=== PATIENT | male | born 1985 | race Caucasian/White ===

== ENCOUNTER → 2022-09-10 09:39 | Outpatient (CLI) | payer OTHER, MEDICAID, SELFPAY ==
[2022-09-10 19:41] LABS: Alanine Aminotransferase 56 IU/L (<50); Albumin 4.4 g/dL (3.5-5.0); Albumin Globulin Ratio 1.7 (1.0-2.8); Alkaline Phosphatase 48 U/L (38-126); Aspartate Aminotransferase 27 IU/L (17-59); BUN Creatinine Ratio 18.2 (6-22); Bilirubin Total 1.8 mg/dL (0.2-1.3); Blood Urea Nitrogen 18 mg/dL (9-20); Calcium 9.3 mg/dL (8.4-10.2); Carbon Dioxide 31 mmol/L (22-32); Chloride 99 mmol/L (98-107); Estimated Glomerular Filt Rate > 60 mL/min (>60); Globulin 2.6 g/dL (1.7-4.1); Glucose 87 mg/dL (70-100); HEMOLYSIS 23 (0-50); Potassium 3.8 mmol/L (3.4-5.1); Sodium 138 mmol/L (137-145)
== END ==
PROVIDERS: Family Provider Family Medicine; PCP Physician Assistant; Visit Provider Physician Assistant
DX: E80.4 Gilbert syndrome (principal)
CPT/HCPCS: 80053; 82248

== ENCOUNTER → 2022-09-25 10:32 | Outpatient (CLI) | payer OTHER, MEDICAID, SELFPAY ==
--- NOTE | 2022-09-25 10:34 | DI.US.S_ITS ---
PROCEDURE: US SCROTUM INDICATIONS: f/u hydrocele, intermittent increased pain/swelling TECHNIQUE: Real-time scanning was performed of the scrotum and testicles, with image documentation. Color and pulse Doppler interrogation was performed of both testicles. COMPARISON: None. FINDINGS: Right: Testicle is normal in size at 3.5 x 1.5 x 2.7 cm, and homogenous in echotexture. 2 mm epididymal head cyst. Epididymis is normal in overall size and morphology. No hydrocele or varicoceles. Overlying scrotal skin is normal in thickness. Left: Testicle is normal in size at 3.2 x 2.6 x 3.0 cm, and homogeneous in echotexture. Epididymis is normal in overall size and morphology. There is a simple hydrocele, small to moderate in size measuring about 20 cc. There is subtle thickening of the overlying scrotal skin. No varicocele. Doppler: Color and pulse Doppler demonstrate normal and symmetric arterial flow in both testicles. IMPRESSION: 1. Small to moderate size simple left hydrocele and mild overlying scrotal skin thickening. 2. No evidence of epididymitis or orchitis. Dictated by: Briana Min M.D. on 09/25/2022 at 17:03 Approved by: Briana Min M.D. on 09/25/2022 at 17:05
== END ==
PROVIDERS: Family Provider Family Medicine; PCP Physician Assistant; Referring Provider Physician Assistant; Visit Provider Physician Assistant
DX: N43.3 Hydrocele, unspecified (principal); Z87.438 Personal history of other diseases of male genital organs
CPT/HCPCS: 76870; 93975

== ENCOUNTER → 2023-05-21 08:42 | Outpatient (CLI) | payer OTHER, MEDICAID, SELFPAY ==
[2023-05-21 19:20] LABS: Alanine Aminotransferase 45 IU/L (<50); Albumin 4.3 g/dL (3.5-5.0); Albumin Globulin Ratio 1.5 (1.0-2.8); Alkaline Phosphatase 42 U/L (38-126); Aspartate Aminotransferase 25 IU/L (17-59); BUN Creatinine Ratio 20.4 (6-22); Bilirubin Total 1.7 mg/dL (0.2-1.3); Blood Urea Nitrogen 20 mg/dL (9-20); Calcium 9.7 mg/dL (8.4-10.2); Carbon Dioxide 30 mmol/L (22-32); Chloride 100 mmol/L (98-107); Estimated Glomerular Filt Rate > 60 mL/min (>60); Globulin 2.9 g/dL (1.7-4.1); Glucose 114 mg/dL (70-100); HEMOLYSIS < 15 (0-50); Potassium 4.2 mmol/L (3.4-5.1); Sodium 136 mmol/L (137-145); Total Protein 7.2 g/dL (6.3-8.2)
[2023-05-21 19:24] LABS: Add Manual Diff / Slide Review NO; Basophils Absolute Auto 0 /uL (0-100); Basophils Percent Auto 0.9 % (0-2); Eosinophils Absolute Auto 100 /uL (0-450); Eosinophils Percent Auto 2.3 % (2-4); Hematocrit 47.8 % (41-53); Hemoglobin 16.7 g/dL (13.5-17.5); Lymphocytes Absolute Auto 2000 /uL (1100-4500); Lymphocytes Percent Auto 38.5 % (25-40); Mean Corpuscular HGB Conc 34.9 % (30-36); Mean Corpuscular Hemoglobin 30.5 PG (26-34); Mean Corpuscular Volume 87.2 fL (80-100); Monocytes Absolute Auto 500 /uL (0-900); Neutrophils Absolute Auto 2600 /uL (1500-7000); Neutrophils Percent Auto 49.3 % (50-75); Platelet Count 216 X10^3/uL (150-400); Red Blood Cell Count 5.48 X10^6/uL (4.5-5.9); Red Cell Distribution Width 13.6 % (11.6-14.8); White Blood Cell Count 5.3 X10^3/uL (4.5-11.0)
[2023-05-23 12:49] LABS: Mumps Virus IgG Antibody <9.0 AU/mL (Immune >10.9)
[2023-05-25 19:35] LABS: Mumps Virus IgM Antibody <0.80 AU (0.00-0.79)
== END ==
PROVIDERS: Family Provider Family Medicine; PCP Physician Assistant; Visit Provider Physician Assistant
DX: N50.89 Other specified disorders of the male genital organs (principal); N45.1 Epididymitis; R74.8 Abnormal levels of other serum enzymes
CPT/HCPCS: 80053; 81002; 85025; 86735

== ENCOUNTER 2023-05-22 12:45 | Emergency (ER) | payer OTHER, MEDICAID, SELFPAY ==
--- NOTE | 2023-05-22 13:05 | DI.US.S_ITS ---
PROCEDURE: US SCROTUM INDICATIONS: BILATERAL TESTICLE PAIN, SWELLING OF LEFT TESTICLE TECHNIQUE: Real-time scanning was performed of the scrotum and testicles, with image documentation. Color and pulse Doppler interrogation was performed of both testicles. COMPARISON: [facility], , US SCROTUM, 09/25/2022, 11:40. FINDINGS: Right: Testicle is normal in size at 1.9 x 2.7 x 3.9 cm, and homogenous in echotexture. Epididymis is normal in overall size and morphology. No hydrocele or varicoceles. Overlying scrotal skin is normal in thickness. Left: Testicle is normal in size at 2.5 x 2.7 x 3.8 cm, and homogeneous in echotexture. Epididymis is normal in overall size and morphology. No varicoceles. Overlying scrotal skin is normal in thickness. Note is made of a testicular appendage measuring only 2 x 3 x 5 mm. There is a moderate hydrocele on the left. Doppler: Color and pulse Doppler demonstrate normal and symmetric arterial flow in both testicles. IMPRESSION: No sign of testicular torsion but there is a moderate-sized left-sided simple appearing hydrocele. No testicular mass lesion or inflammation is found. Dictated by: Kamari Campa M.D. on 05/22/2023 at 14:32 Approved by: Kamari Campa M.D. on 05/22/2023 at 14:34
[2023-05-22 13:16] VITALS: BP 116/77; PULSE 83; RESP 18; TEMP 36.3; O2SAT 98; BMI 25.8
--- NOTE | 2023-05-22 13:31 | PC.NURSE ---
Pt had a hydrocele a couple months ago, started on abx for left testicle yesterday for epididymitits. He reports feel better but still having some pain. Pt has a follow up US appointment today at 1430.
--- NOTE | 2023-05-22 14:11 | ED.MALEGU ---
HPI - Male Genitourinary <Lizy Leo PA-C - Last Filed: 05/22/23 16:48> General Chief complaint: Urogenital-Male Stated complaint: testicle swelling Time Seen by Provider: 05/22/23 13:05 Source: patient Mode of arrival: Ambulatory History of Present Illness HPI Narrative: 38-year-old male who is sent from the walk-in clinic for evaluation of persistent left testicle pain. He has a history of hydrocele and epididymitis and was seen yesterday for evaluation of new onset left testicle swelling and discomfort. Please see providers earlier note. When he presents here he denies any discomfort at the moment and says he came today primarily to get an STI screening which he refused yesterday. He has been monogamous with his for the past 4 years. He was able to get in have his ordered ultrasound today. As far as he knows he has no urological follow-up. Urine dipstick yesterday was negative, labs essentially normal. Related Data Home Medications Medication Instructions Recorded Confirmed Fish Oil daily PO 04/08/22 05/22/23 Vitamin D daily PO 04/08/22 05/22/23 ibuprofen 200 mg tablet 200 mg PO Q6H PRN 04/08/22 05/22/23 Previous Rx's Medication Instructions Recorded sulfamethoxazole 800 1 tab PO BID 10 days #20 tabs 05/21/23 mg-trimethoprim 160 mg tablet (Bactrim DS) Allergies Allergy/AdvReac Type Severity Reaction Status Date / Time No Known Drug Allergies Allergy Verified 05/22/23 13:21 Review of Systems <Lizy Leo PA-C - Last Filed: 05/22/23 16:48> Review of Systems Narrative: GENERAL: Denies chills, fatigue, malaise, fever, sweats. RESPIRATORY: Denies dyspnea, cough, wheezing, hemoptysis, sputum. CARDIOVASCULAR: Denies chest pain, palpitations, orthopnea, edema, GASTROINTESTINAL: Denies nausea, vomiting, abdominal pain, diarrhea, constipation, melena. : Denies dysuria, frequency, incontinence, hematuria, urinary retention. See history. SKIN: Denies rash, skin lesions, or other NEUROLOGIC: Denies weakness, headache, numbness, change in speech, confusion, seizures, incoordination. PSYCHIATRIC: No concerning psychosocial issues. 12 point review of systems is negative except for those stated above Patient History <Lizy Leo PA-C - Last Filed: 05/22/23 16:48> Social History Smoking Status: Never smoker Smoking Status: Never smoker alcohol intake frequency: 0-2 drinks per day Substance Use Type: marijuana Exam <Lizy Leo PA-C - Last Filed: 05/22/23 16:48> Narrative Exam Narrative: Declines exam due to no change in condition. Initial Vital Signs Initial Vital Signs: Vital Signs Temperature 97.4 F L 05/22/23 13:16 Pulse Rate 83 05/22/23 13:16 Respiratory Rate 18 05/22/23 13:16 Blood Pressure 116/77 05/22/23 13:16 Pulse Oximetry 98 05/22/23 13:16 Oxygen Delivery Method Room Air 05/22/23 13:16 <DO Urban Tanner Last Filed: 05/22/23 17:03> Initial Vital Signs Initial Vital Signs: Vital Signs Temperature 97.4 F L 05/22/23 13:16 Pulse Rate 83 05/22/23 13:16 Respiratory Rate 18 05/22/23 13:16 Blood Pressure 116/77 05/22/23 13:16 Pulse Oximetry 98 05/22/23 13:16 Oxygen Delivery Method Room Air 05/22/23 13:16 Course <Lizy Leo PA-C - Last Filed: 05/22/23 16:48> Orders Ordered: ED Orders 05/22/23 13:05 US scrotum Stat 05/22/23 14:45 Chlamydia Gonorrhea PCR -URINE Stat Vital Signs Vital signs: Vital Signs - 8 hr 05/22/23 13:16 Temperature 97.4 F L Pulse Rate 83 Respiratory Rate 18 Blood Pressure 116/77 Pulse Oximetry 98 Oxygen Delivery Method Room Air <DO Urban Tanner Last Filed: 05/22/23 17:03> Orders Ordered: ED Orders 05/22/23 13:05 US scrotum Stat 05/22/23 14:45 Chlamydia Gonorrhea PCR -URINE Stat Vital Signs Vital signs: Vital Signs - 8 hr 05/22/23 13:16 Temperature 97.4 F L Pulse Rate 83 Respiratory Rate 18 Blood Pressure 116/77 Pulse Oximetry 98 Oxygen Delivery Method Room Air [facility] - Male Genitourinary <Lizy Leo PA-C - Last Filed: 05/22/23 16:48> Lab Data Labs: Lab Results 05/22/23 Range/Units 14:45 Ur Chlamydia DNA (PCR) Not detected N gonorrhoeae DNA (PCR) Not detected Imaging Data Scrotal ultrasound: Radiologist's Impression: PROCEDURE: US SCROTUM INDICATIONS: BILATERAL TESTICLE PAIN, SWELLING OF LEFT TESTICLE TECHNIQUE: Real-time scanning was performed of the scrotum and testicles, with image documentation. Color and pulse Doppler interrogation was performed of both testicles. COMPARISON: Located Within [facility], US, US SCROTUM, 09/25/2022, 11:40. FINDINGS: Right: Testicle is normal in size at 1.9 x 2.7 x 3.9 cm, and homogenous in echotexture. Epididymis is normal in overall size and morphology. No hydrocele or varicoceles. Overlying scrotal skin is normal in thickness. Left: Testicle is normal in size at 2.5 x 2.7 x 3.8 cm, and homogeneous in echotexture. Epididymis is normal in overall size and morphology. No varicoceles. Overlying scrotal skin is normal in thickness. Note is made of a testicular appendage measuring only 2 x 3 x 5 mm. There is a moderate hydrocele on the left. Doppler: Color and pulse Doppler demonstrate normal and symmetric arterial flow in both testicles. IMPRESSION: No sign of testicular torsion but there is a moderate-sized left-sided simple appearing hydrocele. No testicular mass lesion or inflammation is found. Dictated by: Kamari Campa M.D. on 05/22/2023 at 14:32 Approved by: Kamari Campa M.D. on 05/22/2023 at 14:34 [facility] Narrative Medical decision making narrative: Urine CT and GC negative. Given no significant changes in his testicle today and his urine was negative for infection he is advised to stop his antibiotic, to support the scrotum, and follow up with his urology referral that has already been placed. He is to return to the ED for with worsening symptoms. Patient was discussed with Dr. Rudolph who agrees with assessment and plan. <Daniele Rudolph DO - Last Filed: 05/22/23 17:03> Lab Data Labs: Lab Results 05/22/23 Range/Units 14:45 Ur Chlamydia DNA (PCR) Not detected N gonorrhoeae DNA (PCR) Not detected Discharge Plan Departure Patient Disposition: Home Clinical Impression: Testicular pain, left Instructions: DI for Hydrocele-Adult Activity Restrictions/Additional Instructions: Your ultrasound is reassuring, no evidence of epididymitis. You can stop the antibiotic. You do have a small hydrocele which has been present in the past. I believe this has been irritated and will do best if you do wear supportive underwear or jockstrap. If anything positive comes back in your urine I will be sure to contact you. If you do not hear from me assume that there is no infection present. Please follow-up with urology as already referred. It was a pleasure to take care of you today. Prescriptions: No Action Fish Oil daily PO Vitamin D daily PO ibuprofen 200 mg tablet 200 mg PO Q6H PRN sulfamethoxazole-trimethoprim [Bactrim DS] 800-160 mg tablet 1 tab PO BID 10 Days Qty: 20 0RF Referrals: Nanda Ruiz PA-C [Primary Care Provider] - Stand Alone Forms: Patient Portal/API ED Sign-out <Daniele Rudolph DO - Last Filed: 05/22/23 17:03> Cosign ED Attending Cosignature Attestation: Dr Rudolph Co-Sign Statement: I was available for consultation during this patient's emergency department visit. This chart is signed by myself for administrative purposes only. I did not have direct contact with this patient during this visit. They were seen independently by the APC.
[2023-05-22 16:37] LABS: Urine N gonorrhoeae NOT DETECTED
[2023-05-22 16:38] LABS: Urine Chlamydia NOT DETECTED
== END 2023-05-22 16:27 | disposition home or self-care (01) ==
PROVIDERS: Emergency Provider Physician Assistant; Family Provider Family Medicine; PCP Physician Assistant
DX: N50.812 Left testicular pain (principal)
CPT/HCPCS: 76870; 87491; 87591; 99281; 99282

== ENCOUNTER → 2024-11-17 11:04 | Outpatient (CLI) | payer OTHER, SELFPAY ==
[2024-11-17 19:08] LABS: Add Manual Diff / Slide Review NO; Basophils Absolute Auto 0 /uL (0-100); Basophils Percent Auto 0.7 % (0-2); Eosinophils Absolute Auto 100 /uL (0-450); Hematocrit 48.5 % (41-53); Hemoglobin 16.5 g/dL (13.5-17.5); Lymphocytes Absolute Auto 2100 /uL (1100-4500); Lymphocytes Percent Auto 37.4 % (25-40); Mean Corpuscular HGB Conc 34.1 % (30-36); Mean Corpuscular Hemoglobin 29.9 PG (26-34); Mean Corpuscular Volume 87.9 fL (80-100); Monocytes Absolute Auto 500 /uL (0-900); Monocytes Percent Auto 8.3 % (3-14); Neutrophils Absolute Auto 2900 /uL (1500-7000); Neutrophils Percent Auto 51.6 % (50-75); Platelet Count 238 X10^3/uL (150-400); Red Blood Cell Count 5.52 X10^6/uL (4.5-5.9); Red Cell Distribution Width 13.4 % (11.6-14.8); White Blood Cell Count 5.5 X10^3/uL (4.5-11.0)
[2024-11-17 19:22] LABS: Alanine Aminotransferase 45 IU/L (<50); Albumin 4.7 g/dL (3.5-5.0); Albumin Globulin Ratio 1.7 (1.0-2.8); Alkaline Phosphatase 43 U/L (38-126); Aspartate Aminotransferase 30 IU/L (17-59); Bilirubin Total 2.7 mg/dL (0.2-1.3); Blood Urea Nitrogen 17 mg/dL (9-20); Calcium 9.4 mg/dL (8.4-10.2); Carbon Dioxide 28 mmol/L (22-32); Chloride 101 mmol/L (98-107); Cholesterol 278 mg/dL (140-199); Estimated Glomerular Filt Rate > 60 mL/min (>60); Globulin 2.7 g/dL (1.7-4.1); Glucose 102 mg/dL (70-99); HDL Cholesterol 51 mg/dL (40-60); HEMOLYSIS < 15 (0-50); LDL Cholesterol Calculated 207 mg/dL (<100); Potassium 4.6 mmol/L (3.4-5.1); Sodium 135 mmol/L (137-145); Total Protein 7.4 g/dL (6.3-8.2); Triglycerides 100 mg/dL (35-150)
[2024-11-17 19:51] LABS: TSH w/ Reflex to FT4 1.63 uIU/mL (0.47-4.68)
[2024-11-17 19:57] LABS: Prostate Specific Antigen Scrn 0.721 ng/mL (0.1-4.0)
[2024-11-17 20:07] LABS: HIV 1 & 2 Ab/Ag 4th Gen Combo NEGATIVE (NEGATIVE); Hep C Virus Ab w/Reflex Quant NEGATIVE s/c (NEGATIVE)
== END ==
PROVIDERS: Family Provider Family Medicine; PCP Physician Assistant; Visit Provider Physician Assistant
DX: R74.8 Abnormal levels of other serum enzymes (principal); Z13.6 Encounter for screening for cardiovascular disorders; R00.2 Palpitations; Z11.59 Encounter for screening for other viral diseases; Z11.4 Encounter for screening for human immunodeficiency virus [HIV]; Z12.5 Encounter for screening for malignant neoplasm of prostate
CPT/HCPCS: 80053; 80061; 84443; 85025; 86803; 87389; G0103

== ENCOUNTER 2024-11-19 22:10 | Emergency (ER) | payer OTHER, SELFPAY ==
--- NOTE | 2024-11-19 22:15 | EKG_ITS ---
[address] [address] [address], [place] [address] Test Date: 2024-11-19 Pat Name: Dg Rye Department: Room: Gender: Male Aemt: SARAH : 1985 Requested By: Order Number: [id number] Reading MD: Russ Weir MD Measurements Intervals [place] Rate: 80 P: 66 KS: 118 QRS: 69 QRSD: 100 T: 19 QT: 388 QTc: 447 Interpretive Statements Normal sinus rhythm Electronically Signed On 11-20-2024 8:14:14 PDT by Russ Weir MD
[2024-11-19 22:16] VITALS: PULSE 79; O2SAT 98
[2024-11-19 22:17] VITALS: BP 147/80; PULSE 78; RESP 18; TEMP 36.3; O2SAT 98; BMI 27.4
--- NOTE | 2024-11-19 22:25 | ED_ITS ---
HPI - Arrhythmia/Palpitations General Chief Complaint: Arrhythmia/Palpitations Stated Complaint: heart palpitations, feels like he's going to Time Seen by Provider: 11/19/24 22:22 Source: patient Mode of arrival: Ambulatory History of Present Illness HPI narrative: 39-year-old male seen recently by PCP with concerns for heart palpitations has been taking magnesium to help relieve his symptoms but tonight he was lying down and he felt like a button was going to turn him off and he woke up suddenly and said that it restarted his heart again. He was concerned that the heart palpitation was going to turn him off for good and wanted to make sure that that did not happen. He also describes as like a water balloon being squeezed in his hand and he is unable to to breathe. he has an upcoming appointment December 09 and belly him to see the papeterie table assembler and it a Holter monitor is being arranged. Other than what is stated 14 point review of system is negative Related Data Home Medications Medication Instructions Recorded Confirmed No Known Home Medications 11/08/24 11/08/24 Allergies Allergy/AdvReac Type Severity Reaction Status Date / Time No Known Drug Allergies Allergy Verified 11/08/24 08:55 Review of Systems Review of Systems ROS Unobtainable: All systems reviewed & are unremarkable except as noted in HPI and below Patient History Social History Smoking Status: Never smoker Smoking Status: Never smoker alcohol intake frequency: 0-2 drinks per day Exam Narrative Exam Narrative: GENERAL: [39] year old patient appears stated age. Well-developed patient, in mild distress. HEAD: Atraumatic. Normocephalic. EYES: Pupils equal round and reactive. Extraocular motions intact. No scleral icterus. No injection or drainage. ENT: Nose without bleeding, purulent drainage. Throat without erythema, tonsillar hypertrophy or exudate. Airway patent. NECK: Trachea midline. Non tender CARDIOVASCULAR: Regular rate and rhythm without murmurs, gallops, or rubs. RESPIRATORY: Clear to auscultation. Breath sounds equal bilaterally. No wheezes, rales, or rhonchi. EXTREMITIES: No edema or joint tenderness. BACK: Nontender without deformity or crepitance. No flank tenderness. NEURO: AOx3. SKIN: No rash or erythema of visible areas Initial Vital Signs Initial Vital Signs: Vital Signs Pulse Rate 79 11/19/24 22:16 Pulse Oximetry 98 11/19/24 22:16 Scores HEART Score Heart Score history: Slightly Suspicious Heart Score EKG: Normal Heart Score Age: < 45 years old Heart Score risk factors: No known risk factors Heart Score troponin: < or = to normal limit Heart Score Total: 0 Course Orders Ordered: ED Orders 11/19/24 22:15 EKG-12 Lead Routine 11/19/24 22:17 Complete Blood Count AUTO DIFF Stat Comprehensive Metabolic Panel Stat Lactate (Lactic Acid) Stat Lipase Stat Magnesium Stat NT-proBNP (BNP-Adult 18+) Stat PTT Partial Thromboplastin Steve Stat Prothrombin Time INR Stat TSH [Thyroid Stimulating Hormone] Stat Troponin & CK Cardiac Panel Stat 11/19/24 22:29 XR chest 1V Stat EKG-12 Lead Stat RT Consult Eval and Treat NOW 11/20/24 00:15 Troponin I Stat Discontinued Medications Aspirin (Aspirin 81 Mg Chew Tab) 324 mg PO NOW ONE Stop: 11/19/24 22:29 Last Admin: 11/20/24 00:02 Dose: Not Given Documented By: AB Vital Signs Vital signs: Vital Signs - 8 hr 11/19/24 22:16 11/19/24 22:17 11/19/24 22:30 Temperature 97.4 F L Pulse Rate 79 78 Respiratory Rate 18 Blood Pressure 147/80 H 115/65 Pulse Oximetry 98 98 Oxygen Delivery Method Room Air 11/19/24 22:30 11/19/24 23:00 11/19/24 23:00 Temperature Pulse Rate 76 78 Respiratory Rate 25 H 21 Blood Pressure 114/70 Pulse Oximetry 95 96 Oxygen Delivery Method Room Air 11/19/24 23:30 11/19/24 23:30 11/20/24 00:00 Temperature Pulse Rate 76 Respiratory Rate 22 Blood Pressure 111/58 L 107/63 Pulse Oximetry 95 Oxygen Delivery Method 11/20/24 00:00 11/20/24 00:16 11/20/24 00:16 Temperature Pulse Rate 77 78 Respiratory Rate 23 21 Blood Pressure 106/75 Pulse Oximetry 94 96 Oxygen Delivery Method 11/20/24 00:30 11/20/24 00:30 11/20/24 01:00 Temperature Pulse Rate 75 73 Respiratory Rate 19 19 Blood Pressure 110/63 Pulse Oximetry 95 96 Oxygen Delivery Method 11/20/24 01:01 11/20/24 01:01 Temperature Pulse Rate 71 Respiratory Rate 19 Blood Pressure 112/59 L Pulse Oximetry 96 Oxygen Delivery Method MDM - Arrhythmia/Palpitations Lab Data 11/19/24 22:17 11/19/24 22:17 Labs: Lab Results 11/19/24 11/20/24 Range/Units 22:17 00:15 WBC 7.9 (4.5-11.0) X10^3/uL RBC 5.58 (4.5-5.9) X10^6/uL Hgb 16.7 (13.5-17.5) g/dL Hct 48.5 (41-53) % MCV 86.9 (80-100) fL MCH 30.0 (26-34) PG MCHC 34.5 (30-36) % RDW 13.6 (11.6-14.8) % Plt Count 239 (150-400) X10^3/uL Neut % (Auto) 51.8 (50-75) % Lymph % (Auto) 37.3 (25-40) % [place] % (Auto) 6.3 (3-14) % Eos % (Auto) 4.0 (2-4) % Baso % (Auto) 0.6 (0-2) % Neut # (Auto) 4100 (6895-4281) /uL Lymph # (Auto) 2900 (5765-9188) /uL [place] # (Auto) 500 (0-900) /uL Eos # (Auto) 300 (0-450) /uL Baso # (Auto) 0 (0-100) /uL PT 11.0 (9.4-12.5) SECONDS INR 1.0 (0.9-1.3) APTT 35 (25.1-36.5) SECONDS Sodium 138 (137-145) mmol/L Potassium 3.8 (3.4-5.1) mmol/L Chloride 100 (98-107) mmol/L Carbon Dioxide 29 (22-32) mmol/L BUN 21 H (9-20) mg/dL Creatinine 0.99 (0.66-1.25) mg/dL Estimated GFR > 60 (>60) mL/min BUN/Creatinine Ratio 21.2 (6-22) Glucose 87 (70-99) mg/dL Lactate 0.9 (0.7-2.1) mmol/L Calcium 9.2 (8.4-10.2) mg/dL Magnesium 1.8 (1.6-2.3) mg/dL Total Bilirubin 1.3 (0.2-1.3) mg/dL AST 40 (17-59) IU/L ALT 54 H (<50) IU/L Alkaline Phosphatase 61 (38-126) U/L Total Creatine Kinase 373 H (55-170) U/L Troponin I < 0.012 < 0.012 (0.01-0.034) ng/mL NT-Pro-B Natriuret Pep 34 (<125) pg/mL Total Protein 7.7 (6.3-8.2) g/dL Albumin 4.8 (3.5-5.0) g/dL Globulin 2.9 (1.7-4.1) g/dL Albumin/Globulin Ratio 1.7 (1.0-2.8) Lipase 70 (23-300) U/L TSH 4.08 (0.47-4.68) uIU/mL Imaging Data Chest x-ray: Radiologist's Impresson: [address] [address] XRay Report Signed Patient: Dg Rey MR#: [id number] : 1985 Acct:[id number] Age/Sex: 39 / M Date of Service: 11/19/24 Loc: ED Accession Number: [id number] Procedure: XR chest 1V Ordering Provider: Russ Moyer D.O. PROCEDURE: XR CHEST 1V INDICATIONS: Chest Pain, palpitations, feelings of doom TECHNIQUE: One view of the chest was acquired. COMPARISON: None. FINDINGS: Surgical changes and devices: None. Lungs and pleura: Lungs are clear. No pleural effusions or pneumothorax. Mediastinum: Mediastinal contours appear normal. Heart size is normal. Bones and chest wall: No suspicious bony lesions. Overlying soft tissues appear unremarkable. IMPRESSION: No acute cardiopulmonary abnormality is seen. ECG Data Interpretation: NSR HR 80 W[place] 118 QRS [address]-t wave change Unchanged from 11/08/24 [facility] Narrative Medical decision making narrative: All lab work, vital signs, nurse triage note, medication list, previous ER visits, and all imaging studies reviewed. Heart score 0. CK was 373 2 sets of troponin were negative and chest x-ray did not show any acute process TSH was normal and the rest of the CBC and CMP panel were unremarkable. Patient is scheduled to see papeterie table assembler in [facility] next month and has a Holter monitor scheduled as outpatient coming up. Differential diagnosis anxiety, GERD, atypical chest pain, PE, pneumothorax, and electrolyte derangement. Discharge Plan Departure Patient Disposition: Home Clinical Impression: Heart palpitations Activity Restrictions/Additional Instructions: Return with new or worsening symptoms. Follow up with papeterie table assembler appointment at [facility]. Prescriptions: No Action No Known Home Medications Referrals: Nanda Ruiz PA-C [Primary Care Provider] - Stand Alone Forms: Patient Portal/API/Survey
--- NOTE | 2024-11-19 22:29 | DI.RAD.S_ITS ---
PROCEDURE: XR CHEST 1V INDICATIONS: Chest Pain, palpitations, feelings of doom TECHNIQUE: One view of the chest was acquired. COMPARISON: None. FINDINGS: Surgical changes and devices: None. Lungs and pleura: Lungs are clear. No pleural effusions or pneumothorax. Mediastinum: Mediastinal contours appear normal. Heart size is normal. Bones and chest wall: No suspicious bony lesions. Overlying soft tissues appear unremarkable. IMPRESSION: No acute cardiopulmonary abnormality is seen. Approved by: Sheryl Kulkarni M.D.,Ph.D. on 11/19/2024 at 23:25
[2024-11-19 22:30] VITALS: BP 115/65; PULSE 76; RESP 25; O2SAT 95
[2024-11-19 22:36] LABS: Add Manual Diff / Slide Review NO; Basophils Absolute Auto 0 /uL (0-100); Basophils Percent Auto 0.6 % (0-2); Eosinophils Absolute Auto 300 /uL (0-450); Hematocrit 48.5 % (41-53); Hemoglobin 16.7 g/dL (13.5-17.5); Lymphocytes Absolute Auto 2900 /uL (1100-4500); Lymphocytes Percent Auto 37.3 % (25-40); Mean Corpuscular HGB Conc 34.5 % (30-36); Mean Corpuscular Volume 86.9 fL (80-100); Monocytes Absolute Auto 500 /uL (0-900); Monocytes Percent Auto 6.3 % (3-14); Neutrophils Absolute Auto 4100 /uL (1500-7000); Neutrophils Percent Auto 51.8 % (50-75); Platelet Count 239 X10^3/uL (150-400); Red Blood Cell Count 5.58 X10^6/uL (4.5-5.9); Red Cell Distribution Width 13.6 % (11.6-14.8); White Blood Cell Count 7.9 X10^3/uL (4.5-11.0)
--- NOTE | 2024-11-19 22:37 | PC.NURSE ---
Pt states that he has not worked out at the gym for the last 2 months due to tax season. Today while working out had rapid heart rate, heel pain, left forearm pain. Pt states that he was free weight lifting, and doing pull ups. However, heart rate and palpitations are no longer present.
[2024-11-19 22:41] LABS: Lactate (Lactic Acid) 0.9 mmol/L (0.7-2.1)
[2024-11-19 22:42] LABS: Alanine Aminotransferase 54 IU/L (<50); Albumin 4.8 g/dL (3.5-5.0); Albumin Globulin Ratio 1.7 (1.0-2.8); Alkaline Phosphatase 61 U/L (38-126); Aspartate Aminotransferase 40 IU/L (17-59); BUN Creatinine Ratio 21.2 (6-22); Bilirubin Total 1.3 mg/dL (0.2-1.3); Blood Urea Nitrogen 21 mg/dL (9-20); Calcium 9.2 mg/dL (8.4-10.2); Carbon Dioxide 29 mmol/L (22-32); Chloride 100 mmol/L (98-107); Creatine Kinase 373 U/L (55-170); Estimated Glomerular Filt Rate > 60 mL/min (>60); Globulin 2.9 g/dL (1.7-4.1); Glucose 87 mg/dL (70-99); HEMOLYSIS 22 (0-50); Lipase 70 U/L (23-300); Magnesium 1.8 mg/dL (1.6-2.3); Potassium 3.8 mmol/L (3.4-5.1); Sodium 138 mmol/L (137-145); Total Protein 7.7 g/dL (6.3-8.2)
[2024-11-19 22:51] LABS: PTT Partial Thromboplastin Tim 35 SECONDS (25.1-36.5)
[2024-11-19 22:53] LABS: NT-proBNP (BNP-Adult 18+) 34 pg/mL (<125); Troponin I < 0.012 ng/mL (0.01-0.034)
[2024-11-19 23:00] VITALS: BP 114/70; PULSE 78; RESP 21; O2SAT 96
[2024-11-19 23:18] LABS: Thyroid Stimulating Hormone 4.08 uIU/mL (0.47-4.68)
[2024-11-19 23:30] VITALS: BP 111/58; PULSE 76; RESP 22; O2SAT 95
[2024-11-20] VITALS: BP 107/63; PULSE 77; RESP 23; O2SAT 94
[2024-11-20 00:16] VITALS: BP 106/75; PULSE 78; RESP 21; O2SAT 96
[2024-11-20 00:30] VITALS: BP 110/63; PULSE 75; RESP 19; O2SAT 95
[2024-11-20 00:50] LABS: Troponin I < 0.012 ng/mL (0.01-0.034)
[2024-11-20 01:00] VITALS: PULSE 73; RESP 19; O2SAT 96
[2024-11-20 01:01] VITALS: BP 112/59; PULSE 71; RESP 19; O2SAT 96
[2024-11-20 01:30] VITALS: BP 93/67; PULSE 75; RESP 21; O2SAT 95
== END 2024-11-20 02:01 | disposition home or self-care (01) ==
PROVIDERS: Emergency Provider Family Medicine; Family Provider Family Medicine; PCP Physician Assistant
DX: R00.2 Palpitations (principal); R07.9 Chest pain, unspecified
CPT/HCPCS: 36415; 71045; 80053; 82550; 83605; 83690; 83735; 83880; 84443; 84484; 85025; 85610; 85730; 93005; 99283; 99284

== ENCOUNTER → 2025-04-20 13:40 | Outpatient (CLI) | payer OTHER, SELFPAY ==
--- NOTE | 2025-04-20 13:45 | DI.ECHO.S_ITS ---
[facility]---------+ [facility] : : [address] : : [place] : : [id number] : : Phone: [phone] Echocardiogram Report + + :Name: LAURENCE PRIETO Study Date: 04/20/2025 Height: 66 in : :[facility] ReadingLocation: Weight: 170 lb : : Gender: Male BSA: 1.9 m2 : :: 1985 Age: 40 yrs BP: 120/72 mmHg: :Reason For Study: SVT : :Ordering Physician: Black, : :Daniele FLORES Performed By: Billy Hayward : :Referring: Daniele Cleaning MD : + + Interpretation Summary - The left ventricular contractility is normal. Estimated ejection fraction is greater than 60% with no segmental wall motion abnormalities. No LVH. Unable to comment on diastolic function. - The right ventricular contractility is normal. - All cardiac chambers are of normal size. - No significant valvular abnormalities. - No obvious intracardiac masses nor thrombi. - No obvious intracardiac shunts. - No hemodynamically significant pericardial effusion. - Low right-sided filling pressures. Conclusion: Normal biventricular systolic function with no significant valvular abnormalities. Procedure: A two-dimensional transthoracic echocardiogram with color flow and Doppler was performed. The study quality was technically adequate. There is no prior echocardiogram noted for this patient. The patient was in normal sinus rhythm during the exam. Left Ventricle: The left ventricle is normal in size and wall thickness. Left ventricular systolic function is normal. The ejection fraction is estimated to be 60-65%. There are no focal wall motion abnormalities. Diastolic function could not be accurately assessed due to unobtainable data. Right Ventricle: The right ventricle is normal in size and function. Atria: The left atrial size is normal. Right atrial size is normal. There is no Doppler evidence for an atrial septal defect. Mitral Valve: The mitral valve leaflets appear to open well. There is no mitral valve stenosis. There is trace mitral regurgitation. Aortic Valve: The aortic valve is trileaflet. The aortic valve opens well. There is no aortic valve stenosis. No aortic regurgitation is present. Tricuspid Valve: The tricuspid valve leaflets are thin and pliable. There is trace tricuspid regurgitation. Pulmonary artery pressures cannot be estimated because of the lack of a measurable TR jet velocity but the IVC suggests a CVP of around 3 mmHg. Pulmonic Valve: The pulmonic valve is not well seen, but is grossly normal. There is a trace or physiologic amount of pulmonic regurgitation. Great Vessels: The aortic root is normal size. The ascending aorta is normal in size. The aortic arch could not be visualized. The pulmonary artery is normal size. The IVC is of normal diameter and collapses greater than 50% with a sniff. This suggests a low right atrial pressure of 3 mm Hg. Pericardium/ Pleura There is no pericardial effusion. MMode/2D Measurements & Calculations LVIDd: 5.3 cm LVOT diam: 2.1 cm LVIDs: 3.1 cm Ao root diam: 2.9 cm FS: 41.2 % asc Aorta Diam: 2.8 cm IVSd: 0.76 cm LVPWd: 0.71 cm LV petersen. diameter/BSA (cm/m^2): 2.9 LV sys. diameter/BSA (cm/m^2): 1.7 LA A2 area: 18.9 cm2 IVC diam: 1.6 cm LA A4 area: 17.4 cm2 LA length (vol): 5.2 cm LA vol: 53.4 ml LA vol index: 28.6 ml/m2 RVD1 (basal): 3.5 cm RVD2 (mid): 2.7 cm TAPSE: 2.1 cm Doppler Measurements & Calculations Ao V2 max: 119.9 cm/sec LVOT Max Hiren: 85.8 cm/sec Ao V2 mean: 78.8 cm/sec LV V1 max P.9 mmHg Ao max P.7 mmHg LV V1 VTI: 15.7 cm Ao mean P.9 mmHg RORY(I,D): 2.3 cm2 Ao V2 VTI: 23.6 cm RORY(V,D): 2.5 cm2 sev ratio: 0.66 RORY indexed to BSA (cm^2/m^2): 1.3 MV E max hiren: 61.1 cm/sec PA V2 max: 107.4 cm/sec MV A max hiren: 29.4 cm/sec PA V2 mean: 72.8 cm/sec MV E/A: 2.1 PA mean P.4 mmHg MV dec time: 0.15 sec PA pr(Accel): 30.2 mmHg SV(LVOT): 55.5 ml Qp/Qs (V,Ao): 1.0/2.5 Qp/Qs (ALVIN Sotelo): 1.0/1.0 Reading Physician:TRICIA
== END ==
PROVIDERS: Family Provider Family Medicine; PCP Physician Assistant; Referring Provider Internal Medicine Cardiovascular Disease; Visit Provider Internal Medicine Cardiovascular Disease
DX: I47.10 Supraventricular tachycardia, unspecified (principal)
CPT/HCPCS: 93306